=== PATIENT | male | born 1985 | race Caucasian/White ===

== ENCOUNTER 2019-02-18 08:25 | Emergency (ER) | payer OTHER, BC ==
--- NOTE | 2019-02-18 09:09 | EDM.PDOC ---
ED HPI GENERAL MEDICAL PROBLEM - General Chief Complaint: General Stated Complaint: UPPER L BACK/SHOULDER PAIN Time Seen by Provider: 02/18/19 08:50 Source of Information: Reports: Patient History Limitations: Reports: No Limitations - History of Present Illness INITIAL COMMENTS - FREE TEXT/NARRATIVE: 33-year-old male who was placing a cylinder onto a bracket at approximately 7: 30 AM today at his work at [employer] and he felt a pulling/popping feeling in his left upper back when the bracket gave way. He states he had a sharp pain in this area at the time and he" lost his breath" for a short period of time. He has since had no difficulty breathing. He has had some pain in the area when he takes a deep breath and with movement. He rates the pain as about a 6/10. It is a sharp and burning pain. He's had no hemoptysis. He had his arms outstretched with the 63 pound cylinder being supported by his arms when this occurred. There were no other injuries. No arm weakness or numbness. No neck pain. There are no other associated signs or symptoms. There are no other modifying factors. Onset: Today (7:30 AM) Duration: Constant (It actually has improved somewhat since this occurred) Location: Reports: Back (Left upper back) Quality: Reports: Burning, Sharp Severity: Moderate Improves with: Reports: Rest Worsens with: Reports: Breathing (With deep breath), Other (Palpation), Movement Context: Reports: Activity (As above) Associated Symptoms: Reports: Shortness of Breath (Transient, gone now.) Treatments LITERACY SPECIALIST: Reports: Other (see below) (Nothing) left shoulder/rib(back) Pain Score (Numeric/FACES): 6 - Related Data Allergies Allergy/AdvReac Type Severity Reaction Status Date / Time No Known Allergies Allergy Verified 02/18/19 08:49 Home Meds: Home Meds NK [No Known Home Meds] 02/18/19 [History] Past Medical History - Past Health History Medical/Surgical History: Denies Medical/Surgical History (No chronic medical problems. Surgical history as detailed below.) - Past Surgical History HEENT Surgical History: Reports: Myringotomy w Tube(s) Social & Family History - Tobacco Use Smoking Status *Q: Current Every Day Smoker - Living Situation & Occupation Occupation: Employed (Works at [employer]) ED ROS GENERAL - Review of Systems Review Of Systems: See Below Constitutional: Reports: No Symptoms HEENT: Reports: No Symptoms Respiratory: Reports: Shortness of Breath (As above, transient, now resolved). Denies: Hemoptysis Cardiovascular: Reports: No Symptoms Endocrine: Reports: No Symptoms GI/Abdominal: Reports: No Symptoms : Reports: No Symptoms Musculoskeletal: Reports: No Symptoms Skin: Reports: No Symptoms Neurological: Reports: No Symptoms Hematologic/Lymphatic: Reports: No Symptoms Immunologic: Reports: No Symptoms ED EXAM, GENERAL - Physical Exam Exam: See Below Exam Limited By: No Limitations General Appearance: Alert, WD/WN, No Apparent Distress Eye Exam: Bilateral Eye: EOMI, Normal Inspection, PERRL Ears: Normal External Exam Ear Exam: Bilateral Ear: Auricle Normal Nose: Normal Inspection, Normal Mucosa, No Blood Throat/Mouth: Normal Inspection, Normal Oropharynx, Normal Voice, No Airway Compromise Head: Atraumatic, Normocephalic Neck: Normal Inspection, Supple, Non-Tender, Full Range of Motion, Carotid Bruit , Limited Range of Motion Respiratory/Chest: No Respiratory Distress, Lungs Clear, Normal Breath Sounds, No Accessory Muscle Use, Chest Non-Tender Cardiovascular: Normal Peripheral Pulses, Regular Rate, Rhythm, No JVD Peripheral Pulses: 2+: Radial (L), Radial (R) GI/Abdominal: Normal Bowel Sounds, Soft, Non-Tender, No Distention, No Mass Back Exam: Normal Inspection, Paraspinal Tenderness (On the left upper back. No crepitus. No bony deformity.) Extremities: Normal Inspection, Normal Range of Motion, Non-Tender, Normal Capillary Refill, No Pedal Edema Neurological: Alert, Oriented, CN II-XII Intact, Normal Cognition, No Motor/ Sensory Deficits Skin Exam: Warm, Dry, Intact, Normal Color, No Rash Course - Vital Signs Last Recorded V/S: Last Vital Signs Temp 36.8 C 02/18/19 08:48 Pulse 56 L 02/18/19 08:48 Resp 16 02/18/19 08:48 BP 130/76 02/18/19 08:48 Pulse Ox 100 02/18/19 08:48 - Orders/Labs/Meds Orders: Active Orders 24 hr Category Date Time Status Chest 2V [CR] Stat Exams 02/18/19 09:08 Taken - Radiology Interpretation Free Text/Narrative:: Chest x-ray PA and lateral showed no acute disease. - Re-Assessments/Exams Free Text/Narrative Re-Assessment/Exam: 02/18/19 10:09: The patient's chest x-ray showed no acute disease. He appears to have a pulled muscle in his left upper back. He should avoid strenuous use with his left arm and heavy lifting for the next 3 days and then migrated increase in activity as tolerated. He will have a 20 pound weight restriction for lifting for the next 3 days. Departure - Departure Time of Disposition: 10:15 Disposition: Home, Self-Care 01 Condition: Good Clinical Impression: Strain of muscle and tendon of back wall of thorax, initial encounter - Discharge Information Instructions: Muscle Strain, [id number] Referrals: PCP,None [Primary Care Provider] - Forms: ED Department Discharge, ED Return to Work/School Form Additional Instructions: The x-ray of your chest showed no abnormality. You appear to have a muscular strain to your left upper back. You may work but no strenuous use of your left arm and 20 pound lifting restriction for the next 3 days. You may take Tylenol and ibuprofen as needed for pain. Back to the emergency department for trouble breathing, coughing up blood or any other concerning sign or symptom. - My Orders Last 24 Hours: My Active Orders 02/18/19 09:08 Chest 2V [CR] Stat - Assessment/Plan Last 24 Hours: My Active Orders 02/18/19 09:08 Chest 2V [CR] Stat
--- NOTE | 2019-02-18 11:02 | CR ---
INDICATION: Left posterior chest pain, status post injury - lifting injury this a.m. CHEST: PA and lateral views of the chest were obtained 02/18/19 - no comparisons. The heart, mediastinum, and bony thorax were essentially unremarkable. An active infiltrate, effusion, contusion, or pneumothorax was not identified. IMPRESSION: No active disease. MTDD
== END 2019-02-18 10:17 | disposition home or self-care (01) ==
LOC: FB.ED 08:25
DX: S29.012A Strain of muscle and tendon of back wall of thorax, initial encounter (principal); F17.200 Nicotine dependence, unspecified, uncomplicated; X50.0XXA Overexertion from strenuous movement or load, initial encounter; Y99.0 Civilian activity done for income or pay
CPT/HCPCS: 71046; 99283-25

== ENCOUNTER 2020-09-20 09:10 | Emergency (ER) | payer BC, OTHER ==
[2020-09-20] MEDS ORDERED: Diphtheria,Pertussis(Acell),Tetanus Vaccine 0.5 ML Syringe IM ONE (09:23)
--- NOTE | 2020-09-20 09:43 | EDM.PDOC ---
ED HPI GENERAL MEDICAL PROBLEM - General Chief Complaint: Laceration Stated Complaint: CUT TWO FINGERS AT WORK Time Seen by Provider: 09/20/20 09:38 Source of Information: Reports: Patient History Limitations: Reports: No Limitations - History of Present Illness INITIAL COMMENTS - FREE TEXT/NARRATIVE: Patient accidentally grazed right 2nd and 3rd digits over sharp metal at work @1 hour ago. He sustained lacerations to these fingers. The 3rd digit laceration is deeper and bled quite a bit. Denies numbness, tingling, or weakness. Last Tetanus vaccine unknown. He is right hand dominant. Onset: Today Duration: Hour(s): (1) Location: Reports: Upper Extremity, Right - Related Data Allergies Allergy/AdvReac Type Severity Reaction Status Date / Time No Known Allergies Allergy Verified 09/20/20 09:33 Home Meds: Home Meds NK [No Known Home Meds] 02/18/19 [History] Past Medical History - Past Health History Medical/Surgical History: Denies Medical/Surgical History (No chronic medical problems. Surgical history as detailed below.) - Past Surgical History HEENT Surgical History: Reports: Myringotomy w Tube(s) Social & Family History - Family History Family Medical History: No Pertinent Family History - Caffeine Use Caffeine Use: Reports: Coffee, Soda - Living Situation & Occupation Occupation: Employed (Works at [employer]) ED ROS GENERAL - Review of Systems Review Of Systems: Comprehensive ROS is negative, except as noted in HPI. ED EXAM, SKIN/RASH Exam: See Below Exam Limited By: No Limitations General Appearance: Alert, WD/WN, No Apparent Distress Respiratory/Chest: No Respiratory Distress Peripheral Pulses: 2+: Radial (R) Extremities: Normal Capillary Refill, Other (1 cm lacerations to palmar aspect of 2nd and 3rd digits overlying distal phalanx. ROM intact) Neurological: Alert, Normal Cognition, No Motor/Sensory Deficits Psychiatric: Normal Affect, Normal Mood Skin: Other (as above) ED SKIN PROCEDURES - Laceration/Wound Repair Right Digit - 3rd (Middle) Appearance: Subcutaneous, Clean Distal NVT: Neuro & Vascular Intact, No Tendon Injury Anesthetic Type: Local Local Anesthesia - Lidocaine (Xylocaine): 1% Plain Local Anesthetic Volume: 2cc Skin Prep: Saline Exploration/Debridement/Repair: No Foreign Material Found Closed with: Sutures Lac/Wound length In cm: 1 Suture Size: 4-0 # of Sutures: 3 Suture Type: Nylon, Interrupted, Simple Drain Placement: No Sterile Dressing Applied: Nurse Tetanus Status Addressed: Yes Complications: No Right Digit - 2nd (Index) Appearance: Superficial Distal NVT: Neuro & Vascular Intact, No Tendon Injury Skin Prep: Saline Exploration/Debridement/Repair: No Foreign Material Found Closed with: Dermabond Lac/Wound length In cm: 1 Drain Placement: No Sterile Dressing Applied: None Tetanus Status Addressed: Yes Complications: No Course - Vital Signs Last Recorded V/S: Last Vital Signs Temp 36.6 C 09/20/20 09:10 Pulse 72 09/20/20 09:10 Resp 18 09/20/20 09:10 BP 149/78 H 09/20/20 09:10 Pulse Ox 98 09/20/20 09:10 - Orders/Labs/Meds Orders: Active Orders 24 hr Category Date Time Status Vaccines to be Administered [RC] PER UNIT ROUTINE Care 09/20/20 09:23 Active Meds: Medications Discontinued Medications Generic Name Dose Route Start Last Admin Trade Name Primo PRN Reason Stop Dose Admin Diphtheria/Tetanus/Acell Pertussis 0.5 ml 09/20/20 09:23 Boostrix IM 09/20/20 09:24 .ONCE ONE Departure - Departure Time of Disposition: 09:43 Disposition: Home, Self-Care 01 Condition: Good Clinical Impression: Laceration of multiple sites of right hand and fingers without complication Qualifiers: Encounter type: initial encounter Qualified Code(s): S61.411A - Laceration without foreign body of right hand, initial encounter; S61.219A - Laceration without foreign body of unspecified finger without damage to nail, initial encounter - Discharge Information *PRESCRIPTION DRUG MONITORING PROGRAM REVIEWED*: No *COPY OF PRESCRIPTION DRUG MONITORING REPORT IN PATIENT SHELLI: Not Applicable Instructions: Sutures, Johanny, or Adhesive Wound Closure, [id number], Laceration Care, Adult Additional Instructions: Apply Bacitracin ointment daily. Keep wounds clean and dry. Follow up in 7-10 days for suture removal, sooner with symptoms or signs of infection. Sepsis Event Note (ED) - Evaluation Sepsis Screening Result: No Definite Risk - Focused Exam Vital Signs: Vital Signs Temp Pulse Resp BP Pulse Ox 09/20/20 09:10 36.6 C 72 18 149/78 H 98 - My Orders Last 24 Hours: My Active Orders 09/20/20 09:23 Vaccines to be Administered [RC] PER UNIT ROUTINE - Assessment/Plan Last 24 Hours: My Active Orders 09/20/20 09:23 Vaccines to be Administered [RC] PER UNIT ROUTINE
[2020-09-20] MEDS ORDERED: Bacitracin Oint 1 GM U/D Packet TOP ONE (09:45)
== END 2020-09-20 10:02 | disposition home or self-care (01) ==
LOC: FB.ED 09:10
DX: S61.210A Laceration without foreign body of right index finger without damage to nail, initial encounter (principal); S61.212A Laceration without foreign body of right middle finger without damage to nail, initial encounter; Z23 Encounter for immunization; W26.8XXA Contact with other sharp object(s), not elsewhere classified, initial encounter; Y92.89 Other specified places as the place of occurrence of the external cause; Y99.0 Civilian activity done for income or pay
CPT/HCPCS: 12001; 90471; 90715; 99000; 99282; 99282-25

== ENCOUNTER 2023-09-29 08:41 | Emergency (ER) | payer BC ==
[2023-09-29 09:53] LABS: CORONAVIRUS COVID-19 NAA NEGATIVE (NEGATIVE); INFLUENZA A NAA NEGATIVE (NEGATIVE); INFLUENZA B NAA POSITIVE (NEGATIVE); RESPIRATORY SYNCYTIAL VIR NAA NEGATIVE (NEGATIVE)
[2023-09-29] MEDS: Oseltamivir 75 MG Cap PO ONE (10:13)
== END 2023-09-29 10:36 | disposition home or self-care (01) ==
LOC: FB.ED 08:41
DX: J10.1 Influenza due to other identified influenza virus with other respiratory manifestations (principal); Z79.899 Other long term (current) drug therapy; Z86.19 Personal history of other infectious and parasitic diseases
CPT/HCPCS: 0241U; 71045; 99284; A9270; 99283